=== PATIENT | female | born 1945 | race Caucasian/White ===

== ENCOUNTER → 2023-09-05 11:21 | Outpatient (REF) | payer OTHER, SELFPAY | LOC: WDC 11:21 | PROVIDERS: ATTENDING PHYSICIAN Physician Assistant | DX: Z12.31 Encounter for screening mammogram for malignant neoplasm of breast (principal) | CPT/HCPCS: 77063; 77067 ==

== ENCOUNTER 2023-11-30 12:42 | Emergency (ER) | payer OTHER, SELFPAY ==
[2023-11-30 12:43] VITALS: BP 116/73
--- NOTE | 2023-11-30 14:37 | ED.MUSCINJ ---
HPI-Injury
General
Chief Complaint: Musculo-Skeletal Complaint
Source: patient
Exam Limitations: none
Time Seen by Provider: 11/30/23 14:24
Nursing documentation reviewed up to this point in time: agreed with
History of Present Illness-Injury
Initial Injury comments:
78-year-old female states she fell 3 hours ago while walking her dog today, tripped, landed on left side, has left hip pain and left shoulder pain. Denies hitting head or any other injury. Was able to get up and ambulate to son's car. She denies
neck or back pain. Took Tylenol 1000 mg 2 hours ago.
Past History
Past History
ED Past Medical History: Cancer (breast 2009 w lumpectomy) and Other (Diverticulitis)
ED Past Surgical History: Cholecystectomy, and Orthopedic
Social History
Tobacco: Non-smoker
Alcohol: None
Living: with family
Review of Systems
Review of Systems
Allergies reviewed?: Yes
All Other Systems: ROS reviewed and negative except as documented in HPI and ROS
Cardiac: Denies chest pain or syncope
ABD/GI: Denies abdominal pain or nausea
: Denies dysuria, incontinence or difficulty voiding
Musculoskeletal: Reports other (pain left shoulder, left hip); Denies edema, neck pain or back pain
Skin: Reports other (abrasion left knee)
Neurological: Reports no symptoms
Phy Exam
Physical Exam
Physical Exam:
GENERAL: No acute distress. A&Ox3.
CONSTITUTIONAL: Afebrile.
EYES: PERRL, conjunctivae normal
Neck: Supple
ENMT: moist mucus membranes, Pharynx nl
RESPIRATORY: Regular respirations, nonlabored, lungs clear.
CARDIOVASCULAR: Regular rate and rhythm, no murmurs, no rubs.
GI: Soft, nontender, normal BS
MUSCULOSKELETAL: No spinal bony tenderness. Left shoulder with mild to moderate swelling, pain to palpation, distal neurovascular intact. The rest of the arm is nontender. Full range of motion at elbow and wrist. Pelvic rock is negative.
Palpation about the hip elicits mild tenderness. She cannot actively straight leg raise the left leg due to hip pain but with passive lifting does not have pain. Full range of motion at left knee. Well perfused.
SKIN: Warm, dry, pink, superficial clean abrasion left knee
PSYCH: Normal mood and affect. Well kept, interactive and appropriate
NEUROLOGIC: Awake, alert and oriented. No focal neurological deficits
Injury Course
Orders/Labs/Results
Orders:
Orders
11/30/23 14:19
CR Hip - LT w/wo Pel 2-3 Vw* Urgent
Comment:
Reason For Exam: fall
Include a pelvis x-ray?: Yes
CR Shoulder, Trauma - Left Urgent
Reason For Exam: fall
11/30/23 15:19
Shoulder Immobilizer Left- Tx ONCE
MDM/Problems Addressed
Differential Diagnosis Includes:
fracture shoulder, fracture pelvis, fx hip vs soft tissue injuries
MDM/Problems Addressed:
78-year-old female states she fell 3 hours ago while walking her dog today, tripped, landed on left side, has left hip pain and left shoulder pain. Denies hitting head or any other injury. Was able to get up and ambulate to son's car. She denies
neck or back pain. Took Tylenol 1000 mg 2 hours ago.
Left shoulder x-ray: Nondisplaced comminuted fracture of the humeral head.
X-ray left hip and pelvis: Initially read by this examiner: No fracture noted.
Sling applied left arm
Referred to orthopedics
Out of bed and ambulating well
Discharged to care of her son.
*Critical Care Note
Total Time (30-74mins, 75-104mins- exclusive of procedures): Not Applicable
ED Attending Note
-
Portions of this chart may have been created with voice recognition software.� Occasional wrong word or��sound alike� substitutions may have occurred due to the inherent limitations of voice recognition software.
Discharge Plan
Departure
Patient Disposition: Home (Routine Discharge)
Date of Disposition: 11/30/23
Time of Disposition: 15:22
Patient with high blood pressure during this ER visit?: No
Condition: Good
Discharge Problem:
Fall from slip, trip, or stumble, Fracture of head of humerus, Contusion of left hip
Instructions: Contusion (DC), Using Cold for Pain, Upper Arm Fracture ED
Prescriptions:
No Action
Align 4 mg Capsule
4 mg PO DAILY
pantoprazole 40 mg Tablet,Delayed Release (Dr/Ec)
40 mg PO DAILY 30 Days Qty: 30 0RF
prednisone 5 mg tablet
40 mg PO DAILY 28 Days Qty: 210 0RF
Rx Instructions:
week 1 40 mg daily
week 2 35 mg daily
week 3 30 mg daily
week 4 25 mg daily
nystatin 100,000 unit/mL suspension
400,000 unit PO QID 10 Days Qty: 160 0RF
mesalamine [Pentasa] 500 mg capsule, extended release
1,000 mg PO QID 30 Days Qty: 240 0RF
ferrous sulfate [Roselyn-Time] 325 mg (65 mg iron) tablet
325 mg PO DAILY 30 Days Qty: 30 0RF
Referrals:
Rene Moulton MD [Active] - Next open appointment
Mariana Nelson PA [Family Provider] -
Activity Restrictions/Additional Instructions:
As we discussed, keep the shoulder immobilizer on until further instructed by the orthopedic doctor. Call the office Saturday morning and make next available appointment.
Tylenol 1000 mg up to 3 times a day as needed for pain.
Interventions
Interventions:
*Risk Screen - Suicide Last Done: 11/30/23 15:05
*General Assessment Last Done: 11/30/23 15:05
*Neglect/Abuse Screening Last Done: 11/30/23 15:05
ED- Fall Risk Assessment Last Done: 11/30/23 16:12
*Nursing Disposition Last Done: 11/30/23 16:12
ED-Musculoskeletal Assessment Last Done: 11/30/23 16:11
Discharge Date and Time
Discharge Date/Time: 11/30/23 16:13
Print Language: FRISIAN
== END 2023-11-30 16:13 | disposition home or self-care (01) ==
LOC: EMR 12:42
PROVIDERS: EMERGENCY PHYSICIAN Emergency Medicine; FAMILY PHYSICIAN Physician Assistant
DX: S42.215A Unspecified nondisplaced fracture of surgical neck of left humerus, initial encounter for closed fracture (principal); S70.02XA Contusion of left hip, initial encounter; W01.0XXA Fall on same level from slipping, tripping and stumbling without subsequent striking against object, initial encounter
CPT/HCPCS: 99283; 73030; 73502